=== PATIENT | male | born 1970 ===

== ENCOUNTER 2022-12-07 06:31 | Day surgery (SDC) | payer OTHER ==
[2022-12-04 14:25] VITALS: BMI 24.4
[2022-12-07] MEDS ORDERED: PROPOFOL 40 ML ONE (07:12)
[2022-12-07] MEDS ORDERED: Lidocaine 1% PF 5 ML VIAL ONE (07:15)
[2022-12-07] MEDS ORDERED: ePHEDrine Sulfate 50 MG/10 ML VIAL ONE (07:42)
== END 2022-12-07 08:55 | disposition home or self-care (01) ==
LOC: CSHSDC 06:31
PROVIDERS: ATTEND Internal Medicine Gastroenterology
PROC: 0DJD8ZZ Inspection of Lower Intestinal Tract, Via Natural or Artificial Opening Endoscopic (ICD-10-PCS; principal; 2022-12-07)
DX: Z12.11 Encounter for screening for malignant neoplasm of colon (principal); K57.30 Diverticulosis of large intestine without perforation or abscess without bleeding; F32.A Depression, unspecified; Z87.891 Personal history of nicotine dependence; Z79.899 Other long term (current) drug therapy
CPT/HCPCS: J2704